=== PATIENT | female | born 1955 | race Hispanic/Latino ===

== ENCOUNTER → 2018-02-21 | Outpatient (CLI) | payer BC ==
[~2018-02-21] MED LIST: REGADENOSON 0.4 MG/5 ML PF SYG IVP SCH
== END | disposition home or self-care (01) ==
LOC: SHCH 08:05
PROVIDERS: ATTEND Internal Medicine Cardiovascular Disease
DX: I25.119 Atherosclerotic heart disease of native coronary artery with unspecified angina pectoris (principal); I25.709 Atherosclerosis of coronary artery bypass graft(s), unspecified, with unspecified angina pectoris; I36.1 Nonrheumatic tricuspid (valve) insufficiency; R01.1 Cardiac murmur, unspecified; R09.89 Other specified symptoms and signs involving the circulatory and respiratory systems
CPT/HCPCS: 78452; 93017; 96374; A9500 ×2; J2785

== ENCOUNTER → 2020-07-23 | Outpatient (CLI) | payer MEDICARE | END | disposition home or self-care (01) | LOC: RAH 15:26 | PROVIDERS: ATTEND Physical Medicine & Rehabilitation | DX: M85.80 Other specified disorders of bone density and structure, unspecified site (principal); M25.552 Pain in left hip; M24.852 Other specific joint derangements of left hip, not elsewhere classified | CPT/HCPCS: 72192; 73700 ==

== ENCOUNTER 2021-08-24 09:08 | Observation (INO) | payer MEDICARE ==
[~2021-08-24] VITALS: Ht 157.5 cm; Wt 71.7 kg
[2021-08-24 11:27] LABS: BASOPHILS % (AUTO) 1.2 % (0.0-5.0); EOSINOPHILS % (AUTO) 3.7 % (0.0-8.0); LYMPHOCYTES % (AUTO) 29.5 % (21.0-51.0); MEAN CORPUSCULAR HEMOGLOBIN 32.4 pg (27.0-33.0); MEAN CORPUSCULAR HGB CONC 32.8 g/dL (32.0-36.0); MEAN CORPUSCULAR VOLUME 98.9 fL (79-99); MONOCYTES % (AUTO) 9.6 % (3.0-13.0); PLATELET COUNT (AUTO) 157 K/uL (130-400); RED BLOOD CELL COUNT(AUTO) 3.64 MIL/uL (4.00-5.50); RED CELL DISTRIBUTION WIDTH 12.5 % (11.0-15.5); WHITE BLOOD COUNT (AUTO) 3.2 K/uL (4.8-10.8)
[2021-08-24 11:36] LABS: CREATININE 0.5 mg/dL (0.5-1.5); POTASSIUM 4.5 mmol/L (3.5-5.1)
[2021-08-24 11:41] LABS: INR 1.04 (0.85-1.15); PROTHROMBIN TIME 11.3 SEC (9.6-11.6)
[2021-08-24 12:16] LABS: B-TYPE NATRIURETIC PEPTIDE 130 pg/mL (0-100)
[2021-08-24 12:47] LABS: ERYTHROCYTE SEDIMENTATION RATE 45 MM/HR (0-30)
[2021-08-25 09:20] VITALS: BP 151/71
[2021-08-25] MEDS ORDERED: ASCO500C18 PO (09:31)
[2021-08-25] MEDS ORDERED: HYDR200T4 PO (09:31)
[2021-08-25] MEDS ORDERED: BIOT10005 PO (09:31)
[2021-08-25] MEDS ORDERED: vitamin d3 PO (09:31)
[2021-08-25] MEDS ORDERED: MAGN400C PO (09:31)
[2021-08-25] MEDS ORDERED: AEC81 PO (09:31)
[2021-08-25] MEDS ORDERED: ATOR40TA71 PO (09:31)
[2021-08-25] MEDS ORDERED: METO-391 PO (09:31)
[2021-08-25] MEDS ORDERED: FEXO180T94 PO (09:31)
[2021-08-25] MEDS ORDERED: ANAS1TAB49 PO (09:31)
[2021-08-25] MEDS ORDERED: FLUT16H NASAL (09:31)
[2021-08-25] MEDS ORDERED: MELO-106 PO (09:31)
[2021-08-25] MEDS ORDERED: VALA500T42 PO (09:31)
[2021-08-25] MEDS ORDERED: OMEP40CA21 PO (09:31)
[2021-08-25] MEDS ORDERED: DICY10SO PO (09:31)
[2021-08-25] MEDS ORDERED: GABA300C PO (09:31)
[2021-08-26] VITALS (25 sets, daily range): BP systolic 147–177; BP diastolic 62–88
[2021-08-26] MEDS ORDERED: LACTATED RINGERS 1000ML 1,000 ML IV ONE ×2 (06:08→13:10)
[2021-08-26] MEDS ORDERED: CEFAZOLIN SODIUM 1 GM VIAL ONE ×4 (06:08→11:35)
[2021-08-26] MEDS ORDERED: BUPIVACAINE/EPI/PF 0.25% 30ML VIAL IJ ONE (06:49)
[2021-08-26] MEDS ORDERED: THROMBIN-JMI 5000 UNIT/VIAL TP ONE (06:50)
[2021-08-26] MEDS ORDERED: MORPHINE PF 100MG/10ML AMP IV ONE (06:50)
[2021-08-26] MEDS ORDERED: SUCCINYLCHOLINE CHLORIDE 20 MG/ML 10 ML VIAL ONE (06:56)
[2021-08-26] MEDS ORDERED: LIDOCAINE PF 100MG/5ML (2%) SYRINGE 5ML ONE (06:56)
[2021-08-26] MEDS ORDERED: GLYCOPYRROLATE 1 MG/5 ML SYRINGE ONE (06:57)
[2021-08-26] MEDS ORDERED: DEXAMETHASONE SOD PHOSPHATE 10MG/ML 1ML VIAL ONE ×2 (06:57→08:11)
[2021-08-26] MEDS ORDERED: PROPOFOL 10 MG/ML 20ML VIAL IV ONE (06:57)
[2021-08-26] MEDS ORDERED: MIDAZOLAM HCL 1 MG/ML 2ML VIAL ONE (06:57)
[2021-08-26] MEDS ORDERED: NEOSTIGMINE 5MG/5ML SYR IV ONE (06:57)
[2021-08-26] MEDS ORDERED: ROCURONIUM 10MG/1ML SYR 10 MG/ML ML ONE (06:58)
[2021-08-26] MEDS ORDERED: ONDANSETRON 4MG INJ ONE ×2 (06:58→12:41)
[2021-08-26] MEDS ORDERED: FENTANYL CITRATE PF 50 MCG/1 ML 2ML VIAL ONE ×3 (06:58→11:11)
[2021-08-26] MEDS ORDERED: PHENYLEPHRINE HCL 10 MG/ML 1ML VIAL IV ONE (06:59)
[2021-08-26] MEDS ORDERED: ARTIFICIAL TEARS 3.5 GM OINTMENT ONE (07:54)
[2021-08-26] MEDS ORDERED: CEFAZOLIN SODIUM 1 GM VIAL IVP ONE (08:00)
[2021-08-26] MEDS: CEFAZOLIN SODIUM 1 GM VIAL IVP SCH ×3 (12:00→20:04)
[2021-08-26] MEDS: LACTATED RINGERS 1000ML 1,000 ML IV SCH (12:30)
[2021-08-26] MEDS ORDERED: 0.9%NACL 10ML VIAL IVP PRN (12:30)
[2021-08-26] MEDS ORDERED: FLUTICASONE PROPIONATE 50MCG/SPRAY 16 GM BOTTLE NS PRN (12:30)
[2021-08-26] MEDS ORDERED: PROMETHAZINE HCL 25 MG/ML 1ML AMPULE IM PRN (12:30)
[2021-08-26] MEDS ORDERED: MEPERIDINE-PF 25 MG/ML SYG ONE ×2 (12:40→13:09)
[2021-08-26] MEDS ORDERED: KETOROLAC 15MG/ML VIAL (15MG/ML) ONE (12:40)
[2021-08-26] MEDS: DICYCLOMINE HCL 20 MG TAB PO SCH ×2 (15:37→19:56)
[2021-08-26] MEDS: GABAPENTIN 300 MG CAPSULE PO SCH ×3 (15:37→20:03)
[2021-08-26] MEDS: DEXAMETHASONE SOD PHOSPHATE 4 MG/ML 1ML VIAL IVP SCH ×2 (15:37→19:57)
[2021-08-26] MEDS: METOPROLOL SUCCINATE 50 MG TAB.SR.24H PO SCH (19:57)
[2021-08-26] MEDS: HYDROCODONE/ACETAMINOPHEN 5/325 MG TAB PO PRN (19:59)
[2021-08-26] MEDS ORDERED: ATORVASTATIN 40 MG TABLET PO SCH (21:00)
[2021-08-27 00:13] VITALS: BP 150/65
[2021-08-27] MEDS: MORPHINE 2 MG SYG IVP PRN ×2 (00:49→10:41)
[2021-08-27] MEDS: DEXAMETHASONE SOD PHOSPHATE 4 MG/ML 1ML VIAL IVP SCH ×3 (00:59→12:41)
[2021-08-27] MEDS: LACTATED RINGERS 1000ML 1,000 ML IV SCH (01:50)
[2021-08-27 04:20] VITALS: BP 113/56
[2021-08-27] MEDS: HYDROCODONE/ACETAMINOPHEN 5/325 MG TAB PO PRN (04:52)
[2021-08-27 07:16] VITALS: BP 124/55
[2021-08-27] MEDS ORDERED: MELOXICAM 7.5 MG TABLET PO SCH (09:00)
[2021-08-27] MEDS ORDERED: VALACYCLOVIR HCL 500 MG TABLET PO SCH (09:00)
[2021-08-27] MEDS: GABAPENTIN 300 MG CAPSULE PO SCH ×2 (09:00→12:41)
[2021-08-27] MEDS ORDERED: LORATADINE 10 MG TABLET PO SCH (09:00)
[2021-08-27] MEDS ORDERED: ANASTROZOLE 1 MG PO SCH (09:00)
[2021-08-27] MEDS ORDERED: MAGNESIUM OXIDE 400 MG TABLET PO SCH (09:00)
[2021-08-27] MEDS ORDERED: ASPIRIN 81 MG EC TAB PO SCH (09:00)
[2021-08-27] MEDS ORDERED: PANTOPRAZOLE 40 MG TAB DR PO SCH (09:00)
[2021-08-27] MEDS ORDERED: HYDROXYCHLOROQUINE SULFATE 200 MG TAB PO SCH (09:00)
[2021-08-27] MEDS ORDERED: ASCORBIC ACID 500 MG TAB PO SCH (09:00)
[2021-08-27] MEDS ORDERED: BIOTIN 10000 MCG PO SCH (09:00)
[2021-08-27] MEDS: METOPROLOL SUCCINATE 50 MG TAB.SR.24H PO SCH (09:26)
[2021-08-27] MEDS: DICYCLOMINE HCL 20 MG TAB PO SCH (09:26)
[2021-08-27 11:19] VITALS: BP 124/56
== END 2021-08-27 14:07 | disposition home or self-care (01) ==
LOC: EDSTATUS 14:00 → DAHIP 08-26 05:56 → 4BH 08-26 13:40
PROVIDERS: ADMIT Neurological Surgery; ATTEND Neurological Surgery
DX: M48.061 Spinal stenosis, lumbar region without neurogenic claudication (principal); Z20.822 Contact with and (suspected) exposure to COVID-19; M48.07 Spinal stenosis, lumbosacral region; M48.56XA Collapsed vertebra, not elsewhere classified, lumbar region, initial encounter for fracture; Z85.3 Personal history of malignant neoplasm of breast; Z90.10 Acquired absence of unspecified breast and nipple; Z90.710 Acquired absence of both cervix and uterus; Z79.82 Long term (current) use of aspirin; Z95.5 Presence of coronary angioplasty implant and graft
CPT/HCPCS: 36415; 63047; 63048 ×2; 71045; 72110; 80048; 83880; 85025; 85610; 85651; 87635; 96374; 96375 ×2; 96376 ×2; A4215; A4344; A4649 ×2; A6260; C1776; G0378 ×22; G0379; J0330; J0690 ×5; J1100 ×7; J1885; J2001; J2175 ×2; J2250; J2274; J2370; J2405 ×2; J2704; J2710; J3010 ×3; J3490 ×3; J7120 ×4

== ENCOUNTER → 2022-04-19 | Outpatient (CLI) | payer MEDICARE ==
[~2022-04-19] MED LIST changes: +AEC81 PO; +ANAS1TAB49 PO; +ASCO500C18 PO; +ATOR40TA71 PO; +BIOT10005 PO; +DICY10SO PO; +FEXO180T94 PO; +FLUT16H NASAL; +GABA300C PO; +HYDR200T4 PO; +MAGN400C PO; +MELO-106 PO; +METO-391 PO; +OMEP40CA21 PO; -REGADENOSON 0.4 MG/5 ML PF SYG IVP SCH; +VALA500T42 PO; +vitamin d3 PO
== END | disposition home or self-care (01) ==
LOC: RAH 11:33
PROVIDERS: ATTEND Physical Medicine & Rehabilitation
DX: M48.56XA Collapsed vertebra, not elsewhere classified, lumbar region, initial encounter for fracture (principal); M54.50 Low back pain, unspecified; M47.816 Spondylosis without myelopathy or radiculopathy, lumbar region; M48.061 Spinal stenosis, lumbar region without neurogenic claudication
CPT/HCPCS: 72110

== ENCOUNTER → 2022-12-31 | Outpatient (CLI) | payer MEDICARE ==
[~2022-12-31] MED LIST changes: -HYDR200T4 PO; +HYDR200T75 PO
== END | disposition home or self-care (01) ==
LOC: RAH 07:48
PROVIDERS: ATTEND Physical Medicine & Rehabilitation
DX: S46.811A Strain of other muscles, fascia and tendons at shoulder and upper arm level, right arm, initial encounter (principal); M25.511 Pain in right shoulder; M65.811 Other synovitis and tenosynovitis, right shoulder; M25.411 Effusion, right shoulder; M19.011 Primary osteoarthritis, right shoulder; X58.XXXA Exposure to other specified factors, initial encounter; Y93.89 Activity, other specified; Y92.89 Other specified places as the place of occurrence of the external cause; Y99.8 Other external cause status
CPT/HCPCS: 73221

== ENCOUNTER → 2023-01-21 | Outpatient (CLI) | payer MEDICARE | END | disposition home or self-care (01) | LOC: RAH 11:16 | PROVIDERS: ATTEND Physical Medicine & Rehabilitation | DX: M17.12 Unilateral primary osteoarthritis, left knee (principal); M25.561 Pain in right knee; M25.562 Pain in left knee; M25.761 Osteophyte, right knee | CPT/HCPCS: 73562; 73560 ==

== ENCOUNTER → 2023-09-06 | Outpatient (CLI) | payer MEDICARE | END | disposition home or self-care (01) | LOC: RAH 15:13 | PROVIDERS: ATTEND Physical Medicine & Rehabilitation | DX: M48.56XA Collapsed vertebra, not elsewhere classified, lumbar region, initial encounter for fracture (principal); M47.26 Other spondylosis with radiculopathy, lumbar region; M41.86 Other forms of scoliosis, lumbar region; M48.07 Spinal stenosis, lumbosacral region | CPT/HCPCS: 72148 ==

== ENCOUNTER → 2024-03-05 | Outpatient (CLI) | payer MEDICARE ==
--- NOTE | 2024-03-05 10:16 | HMCIMG ---
MR SHOULDER RIGHT WO HISTORY: Right shoulder pain COMPARISON: None TECHNIQUE: MRI of the right shoulder was performed utilizing multiple pulse sequences in axial, coronal and sagittal planes. Patient was not given contrast through intravenous route. FINDINGS: Subchondral cyst formations are seen in the humeral head. No abnormal signal intensity is seen of the visualized bony structure. Hypertrophic degenerative changes are seen of the acromioclavicular joint. There is downward sloping of acromion in a medial to lateral direction encroaching upon the rotator cuff tendon and muscles. There is rotator cuff tendinosis. There are findings suspicious for complete rotator cuff tendon tear. MR arthrogram may be helpful. There is fluid in the subacromial-subdeltoid bursa complex may be related to bursitis. The glenoid labrum is intact. Bicipital tendon is seen within its groove. Tiny joint effusion is seen. There is fluid in the bicipital tendon sheath may be related to tenosynovitis. IMPRESSION: 1. Rotator cuff tendinosis with possible complete tear not excluded. Fluid in the subacromial-subdeltoid bursa complex may be related to bursitis. Suspect biceps tendon synovitis.
== END | disposition home or self-care (01) ==
LOC: RAH 08:55
PROVIDERS: ATTEND Physical Medicine & Rehabilitation
DX: M19.011 Primary osteoarthritis, right shoulder (principal); M25.411 Effusion, right shoulder; M85.611 Other cyst of bone, right shoulder; M25.511 Pain in right shoulder
CPT/HCPCS: 73221